=== PATIENT | male | born 1985 | race Caucasian/White ===

== ENCOUNTER 2023-02-25 14:04 | Emergency (ER) | payer OTHER ==
[2023-02-25 14:30] VITALS: BP 146/101; PULSE 99; RESP 18; BMI 41.1
[2023-02-25] MEDS ORDERED: IBUPROFEN 600 MG TABLET (FP) PO ONE ×2 (14:30→14:40)
[2023-02-25 15:50] VITALS: TEMP 99
== END 2023-02-25 15:54 | disposition home or self-care (01) ==
LOC: FER 14:04
DX: M25.562 Pain in left knee (principal); S83.92XA Sprain of unspecified site of left knee, initial encounter; X50.1XXA Overexertion from prolonged static or awkward postures, initial encounter
CPT/HCPCS: 73562-TC-LT-FY; 99283-25